=== PATIENT | male | born 1975 | race African-American/Black ===

== ENCOUNTER 2017-05-10 13:21 | Emergency (ER) | payer SELFPAY ==
[~2017-05-10] VITALS: Ht 180.3 cm; Wt 100.0 kg
[2017-05-10 13:30] VITALS: BP 142/68; PULSE 82; RESP 17; TEMP 98.7; O2SAT 100
== END 2017-05-10 15:54 | disposition left against medical advice (07) ==
LOC: NED 13:21
DX: Z04.2 Encounter for examination and observation following work accident (principal); W22.8XXA Striking against or struck by other objects, initial encounter; Y99.0 Civilian activity done for income or pay; Z53.21 Procedure and treatment not carried out due to patient leaving prior to being seen by health care provider
CPT/HCPCS: 99281